=== PATIENT | male | born 1965 | race Caucasian/White ===

== ENCOUNTER 2017-12-13 08:12 | Emergency (ER) | payer OTHER, BC ==
--- NOTE | 2017-12-13 08:26 | PDOC ---
History of Present Illness - General Chief Complaint: Injury Stated Complaint: LEFT LEG/KNEE INJURY Time Seen by Provider: 12/13/17 08:16 History Source: Patient Exam Limitations: No Limitations - History of Present Illness Initial Comments: 12/13/17 08:44 52y M hx of gout, htn, hl, chronic elevation of WBC (curently being worked up/ followed by onc) presents with L knee pain/ecchymosis. Pt states he was horsing around with his friend last friday, he was kneed in the L thigh, there was alot of pain, but he has been able to ambulate afterwards, there was some swelling afterwards, and 2 days ago, he noticed significant amount of bruising in hte inner thigh/knee.. but pt denies any pain in the area of bruising. pt states he is traveling from [place] and has been on his feet alot helping around the house. he denies any other symptoms including cp, sob, abd pain, n/v , cough, deneis any easy bruising/bleeding in the past. not on any a/c or aspirin. PMD in [place] Past History - Past Medical History Allergies/Adverse Reactions: Allergies Allergy/AdvReac Type Severity Reaction Status Date / Time Penicillins Allergy Unknown Rash Verified 12/13/17 08:30 Home Medications: Ambulatory Orders Bethanechol Chloride [Urecholine] 5 mg PO DAILY 12/13/17 Olmesartan Medoxomil [Benicar (Nf)] 40 mg PO DAILY 12/13/17 Review of Systems - Review of Systems Able to Perform ROS?: Yes Comments:: 12/13/17 08:53 Constitutional - no reported Fever, Chills, HEENT: no reported vision changes, sore throat Respiratory: no reported cough, sob, hemoptysis Cardiac: no reported chest pain, palpitations, light headedness, leg swelling Abd/GI: no reported abd pain, nausea, vomiting, blood per rectum, melena, diarrhea : no reported dysuria, frequency, discharge Musculskelatal - L leg pain/bruising no reported back pain, joint swelling skin - no reported bruising, erythema, rash neurological: no reported headache, numbness, focal weakness, tingling, ataxia, hematologic: no reported easy bruising, easy bleeding *Physical Exam - Physical Exam Comments: 12/13/17 08:54 GENERAL: The patient is awake, alert, and fully oriented, Nontoxic - in no acute distress. HEAD: Normocephalic, atraumatic. EYES: extraocular movements intact, sclera anicteric, conjunctiva clear. ENT: Normal voice, NECK: Normal range of motion, supple LUNGS: Breath sounds equal, clear to auscultation bilaterally. No wheezes, no rhonchi, no rales. HEART: Regular rate and rhythm, normal S1 and S2 without murmur, rub or gallop. ABDOMEN: Soft, nontender, normoactive bowel sounds. No guarding, no rebound. . No CVA tenderness EXTREMITIES: Normal range of motion, no edema. Ecchymosis in the proximal lateral left thigh with mild tenderness, significant amount of ecchymosis in the medial aspect of the left knee, distal tib-fib any focal tenderness, normal range of motion of the left knee. NEUROLOGICAL: No facial assymetry, Normal speech, normal gait PSYCH: Normal mood, normal affect. SKIN: Warm, Dry, normal turgor, ED Treatment Course - LABORATORY CBC & Chemistry Diagram: 12/13/17 08:56 Medical Decision Making - Medical Decision Making 12/13/17 08:55 Suspect hematoma that has been draining secondary to gravity, Will obtain x-ray to rule out fracture Will obtain a CBC to rule out thrombocytopenia 12/13/17 09:35 pts labs reviewed no thrombocytpenia noted femur xray no fx will dc pt with pmd fu return precuations were discussed I discussed the physical exam findings, ancillary test results and final diagnoses with the patient. I answered all of the patient's questions. The patient was satisfied with the care received and felt comfortable with the discharge plan and treatment plan. The patient will call their primary care physician within 24 hours to arrange follow-up and will return to the Emergency Department with any new, persistent or worsening symptoms. *DC/Admit/Observation/Transfer Diagnosis at time of Disposition: Contusion of thigh, left Qualifiers: Encounter type: initial encounter Qualified Code(s): S70.12XA - Contusion of left thigh, initial encounter - Discharge Dispostion Disposition: HOME Condition at time of disposition: Improved Decision to Admit order: No - Referrals - Patient Instructions Printed Discharge Instructions: DI for Contusion Additional Instructions: Return to the emergency department immediately with ANY new, persistent or worsening symptoms. You MUST call and follow up with your doctor in 1 week for further evaluation of your symptoms. Results were discussed with you. Please make sure your doctor reviews the results of your emergency evaluation. If you had any xrays during your visit, it was read preliminarily by myself, a Radiologist will review it and if there are any additional findings we will call you. Print Language: GREEK - Post Discharge Activity
[2017-12-13 08:50] VITALS: BP 139/94; PULSE 91; TEMP 98; BMI 34.7
[2017-12-13 09:12] LABS: HEMATOCRIT 39.8 % (35.4-49); HEMOGLOBIN 13.8 GM/dl (11.7-16.9); MCH 34.5 pg (25.7-33.7); MCHC 34.7 g/dl (32.0-35.9); MEAN CELL VOLUME 99.3 fl (80-96); MEAN PLT VOLUME 7.7 fl (7.5-11.1); PLATELET COUNT 290 K/MM3 (134-434); RDW 14.2 % (11.9-15.9); WHITE BLOOD COUNT 10.4 K/mm3 (4.0-10.8)
[2017-12-13 09:25] LABS: ADD RBC MORPHOLOGY YES
[2017-12-13 10:31] LABS: PLATELET ESTIMATE ADEQUATE
== END 2017-12-13 09:42 | disposition home or self-care (01) ==
LOC: FER 08:12
DX: S70.12XA Contusion of left thigh, initial encounter (principal)
CPT/HCPCS: 36415; 73552-TC-LT-FY; 85025; 99282-25